=== PATIENT | female | born 1990 | race Caucasian/White ===

== ENCOUNTER 2016-11-23 20:03 | Emergency (ER) | payer BC ==
[~2016-11-23 20:03] MED LIST: ALBUTEROL17 GM INH; BACTRIM DS TABL1 TA1 PO; BACTRIM DS TABL1 TAB PO; BACTROBAN22 GM TP; CORTISPORI10 ML OTIC AD; E-MYCIN250 MG PO; ERYTHROMYC3.5 GM OPT OD; ERYTHROMYCIN B500 MG PO; ERYTHROMYCIN O3.5 GM OS; FLAGYL PO; HYDROMET SYRUP480 ML PO; IBUPROFEN PO; IBUPROFEN800 MG PO; KEFLEX500 M1 PO; LORTAB 7.51 TAB 7.5/ PO; METRONIDAZOLE PO; NO MEDICATIONS; OTC AZO; PHENERGAN PO; PHENERGAN25 MG PO; PREDNISONE PO; PRENATAL VITAMI1 TA3 PO; PYRIDIUM PO; SUDAFED30 M1 PO; VIBRAMYCIN100 M1 DOB; VOLTAREN75 MG PO; Z-CLINZ 10 PAC1 EA PO; ZANTAC PO; ZITHROMAX PO
[2016-11-23 20:27] LABS: INFLUENZA A NEG (NEG); INFLUENZA B NEG (NEG)
== END 2016-11-23 20:46 | disposition home or self-care (01) ==
LOC: SED 20:03
PROVIDERS: Physician Assistant Medical
DX: J06.9 Acute upper respiratory infection, unspecified (principal); F17.210 Nicotine dependence, cigarettes, uncomplicated; Z88.0 Allergy status to penicillin
CPT/HCPCS: 87651; 87804; 99283

== ENCOUNTER 2016-12-31 09:45 | Emergency (ER) | payer BC | END 2016-12-31 10:22 | disposition home or self-care (01) | LOC: SED 09:45 | DX: M77.51 Other enthesopathy of right foot and ankle (principal); Z90.49 Acquired absence of other specified parts of digestive tract | CPT/HCPCS: 99283 ==